=== PATIENT | male | born 1940 | race Caucasian/White ===

== ENCOUNTER → 2017-10-12 10:39 | Outpatient (CLI) | payer MEDICARE, SELFPAY ==
--- NOTE | 2017-10-12 | DI.RAD.S_ITS ---
PROCEDURE: XR PELVIS 1-2V INDICATIONS: pain in right hip when exercising TECHNIQUE: Single view(s) of the pelvis acquired. COMPARISON: None. FINDINGS: Bones: No fractures or dislocations. No suspicious bony lesions. Degenerative changes in both hips right greater than left as well as the lower lumbar spine. Soft tissues: Visualized bowel gas pattern is normal. Amorphous pelvic calcifications likely within the prostate. Surgical clip RLQ. IMPRESSION: 1. No acute fractures or dislocations. If there is clinical concern for a radiographically occult fracture then a noncontrast MRI would be recommended for further evaluation. There are bilateral hip degenerative changes right greater the left. 2. Amorphous pelvic calcifications likely within the prostate. Dictated by: Marito Begum M.D. on 10/12/2017 at 11:23 Approved by: Marito Begum M.D. on 10/12/2017 at 11:25
== END ==
PROVIDERS: Family Provider Internal Medicine; PCP Internal Medicine; Visit Provider Internal Medicine
DX: M16.0 Bilateral primary osteoarthritis of hip (principal); M25.551 Pain in right hip
CPT/HCPCS: 72170

== ENCOUNTER → 2018-08-07 16:05 | Outpatient (CLI) | payer MEDICARE, SELFPAY | PROVIDERS: Family Provider Internal Medicine; PCP Internal Medicine; Visit Provider Nurse Practitioner Family | DX: G47.33 Obstructive sleep apnea (adult) (pediatric) (principal) | CPT/HCPCS: 36415; 82728 ==

== ENCOUNTER → 2018-10-03 10:03 | Outpatient (CLI) | payer MEDICARE, SELFPAY ==
--- NOTE | 2018-10-03 | DI.US.S_ITS ---
PROCEDURE: US EXTREMITY NONVASC LOWER LT INDICATIONS: RED CUTANEOUS LUMP TECHNIQUE: Real-time scanning was performed of the left lower lateral leg, with image documentation. COMPARISON: None. FINDINGS: 3.7 x 1.0 x 5.0 cm complex subcutaneous soft tissue mass. Doppler assessment demonstrates no internal vascularity. IMPRESSION: Nonspecific mass corresponding to the palpable abnormality within the left lower leg. Differential would include both benign and malignant etiology. If indicated, sonographically directed fine needle aspiration could be performed. Dictated by: Bill SCOTT Interpreted: Eliel Akins MD on 10/03/2018 at 12:42 Approved by: Eliel Akins M.D. on 10/03/2018 at 15:34
== END ==
PROVIDERS: Family Provider Internal Medicine; PCP Internal Medicine; Visit Provider Internal Medicine
DX: R22.42 Localized swelling, mass and lump, left lower limb (principal)
CPT/HCPCS: 76882

== ENCOUNTER → 2018-10-28 11:04 | Outpatient (CLI) | payer MEDICARE, SELFPAY ==
--- NOTE | 2018-10-28 11:06 | DI.MRI.S_ITS ---
PROCEDURE: MR LOWER LEG LT WO/W CON INDICATIONS: Rapidly growing mass left lateral leg 5X5cm TECHNIQUE: Noncontrast coronal T1 spin echo and STIR, sagittal T1 spin echo with fat saturation and STIR, axial T1 spin echo and T2 fast spin echo with fat saturation. After the administration of contrast, axial/sagittal/coronal T1 spin echo with fat saturation through the left lower leg. COMPARISON: None. FINDINGS: Image quality: Excellent. Bones: The visualized bone marrow demonstrates normal signal on all sequences. The overlying cortex appears intact. No abnormal intraosseous enhancement. Soft tissues: 3.2 x 1.1 x 3.4 cm oval T2 hyperintense and T1 hypointense structure over lateral aspect of distal lower leg just lateral to the extensor digitorum longus muscle is seen. There is mild peripheral contrast enhancement. No underlying muscle or tendon involvement. The scanned muscles demonstrate normal overall bulk and internal signal. IMPRESSION: 1. 3.2 x 1.1 x 3.4 cm cystic structure is subcutaneous soft tissue along lateral aspect of distal lower leg initial mild peripheral contrast enhancement and most likely represent a ganglion cyst in this area. No other soft tissue mass or fluid collection is seen. No underlying muscle or tendon signal abnormality. 2. No marrow signal abnormality. No fracture or dislocation. Dictated by: Zeus Maurer M.D. on 10/28/2018 at 17:00 Approved by: Zeus Maurer M.D. on 10/28/2018 at 17:24
== END ==
PROVIDERS: Family Provider Internal Medicine; PCP Internal Medicine; Visit Provider Specialist
DX: R22.42 Localized swelling, mass and lump, left lower limb (principal)
CPT/HCPCS: 73720; A9579

== ENCOUNTER → 2018-12-10 07:11 | Outpatient (CLI) | payer MEDICARE, SELFPAY ==
[2018-12-10 08:06] LABS: Add Manual Diff / Slide Review NO; Basophils Absolute Auto 100 /uL (0-100); Basophils Percent Auto 1.2 % (0-2); Eosinophils Absolute Auto 300 /uL (0-450); Eosinophils Percent Auto 6.2 % (2-4); Hematocrit 43.5 % (41-53); Hemoglobin 14.6 g/dL (13.5-17.5); Lymphocytes Absolute Auto 1300 /uL (1100-4500); Lymphocytes Percent Auto 23.5 % (25-40); Mean Corpuscular HGB Conc 33.5 % (30-36); Mean Corpuscular Hemoglobin 32.1 PG (26-34); Mean Corpuscular Volume 95.6 fL (80-100); Monocytes Absolute Auto 700 /uL (0-900); Monocytes Percent Auto 13.1 % (3-14); Neutrophils Absolute Auto 3000 /uL (1500-7000); Platelet Count 242 X10^3/uL (150-400); Red Blood Cell Count 4.55 X10^6/uL (4.5-5.9); Red Cell Distribution Width 14.6 % (11.6-14.8); White Blood Cell Count 5.4 X10^3/uL (4.5-11.0)
[2018-12-10 08:20] LABS: Blood Urea Nitrogen 12 mg/dL (9-20); Calcium 10.1 mg/dL (8.4-10.2); Carbon Dioxide 29 mmol/L (22-32); Chloride 103 mmol/L (98-107); Cholesterol 184 mg/dL (140-199); Estimated Glomerular Filt Rate > 60.0 mL/min (>60); Glucose 92 mg/dL (80-110); HDL Cholesterol 72 mg/dL (40-60); HEMOLYSIS < 15 (0-50); LDL Cholesterol Calculated 88 mg/dL (<100); Sodium 140 mmol/L (137-145); Triglycerides 120 mg/dL (35-150)
[2018-12-10 08:50] LABS: TSH w/ Reflex to FT4 1.86 uIU/mL (0.47-4.68)
[2018-12-10 08:54] LABS: Erythrocyte Sedimentation Rate 7 MM/HR (0-15)
== END ==
PROVIDERS: PCP Internal Medicine; Visit Provider Internal Medicine
DX: R53.83 Other fatigue (principal); R06.09 Other forms of dyspnea; E78.00 Pure hypercholesterolemia, unspecified; M10.00 Idiopathic gout, unspecified site; E03.9 Hypothyroidism, unspecified; M35.3 Polymyalgia rheumatica
CPT/HCPCS: 36415; 80048; 80061; 84443; 84550; 85025; 85651

== ENCOUNTER → 2019-02-05 10:58 | Outpatient (CLI) | payer MEDICARE, SELFPAY ==
--- NOTE | 2019-02-05 | DI.RAD.S_ITS ---
PROCEDURE: XR KNEE RT 3V INDICATIONS: RT KNEE PAIN TECHNIQUE: 3 views of the knee were acquired. COMPARISON: [facility], KNEE 3V RIGHT, 12/04/2006, 6:52. [facility], KNEE 1-2 VIEWS LEFT, 11/01/2009, 10:16. FINDINGS: Bones: No fractures or dislocations. No suspicious bony lesions. Moderate medial patellofemoral compartment narrowing with felicia--articular osteophytes and patellar spur. Soft tissues: Mild joint effusion. No suspicious soft tissue calcifications. IMPRESSION: Medial and patellofemoral compartment narrowing consistent with osteoarthritis. Dictated by: Marilyn Aguirre M.D. on 02/05/2019 at 15:31 Approved by: Marilyn Aguirre M.D. on 02/05/2019 at 15:32
== END ==
PROVIDERS: PCP Internal Medicine; Visit Provider Internal Medicine
DX: M25.561 Pain in right knee (principal); M25.461 Effusion, right knee
CPT/HCPCS: 73562

== ENCOUNTER → 2019-03-04 19:23 | Outpatient (ROUT) | payer MEDICARE, SELFPAY | PROVIDERS: PCP Internal Medicine; Visit Provider Internal Medicine | DX: N39.0 Urinary tract infection, site not specified (principal) | CPT/HCPCS: 87077; 87086; 87186 ==

== ENCOUNTER → 2019-08-02 08:03 | Outpatient (CLI) | payer MEDICARE, SELFPAY ==
[2019-08-02 09:09] LABS: Alanine Aminotransferase 25 IU/L (<50); Albumin 4.1 g/dL (3.5-5.0); Albumin Globulin Ratio 1.4 (1.0-2.8); Alkaline Phosphatase 72 U/L (38-126); Aspartate Aminotransferase 50 IU/L (17-59); BUN Creatinine Ratio 16.2 (6-22); Bilirubin Total 0.5 mg/dL (0.2-1.3); Blood Urea Nitrogen 17 mg/dL (9-20); Calcium 9.9 mg/dL (8.4-10.2); Carbon Dioxide 27 mmol/L (22-32); Chloride 107 mmol/L (98-107); Cholesterol 158 mg/dL (140-199); Estimated Glomerular Filt Rate > 60.0 mL/min (>60); Globulin 2.9 g/dL (1.7-4.1); Glucose 106 mg/dL (80-110); HDL Cholesterol 59 mg/dL (40-60); HEMOLYSIS < 15 (0-50); LDL Cholesterol Calculated 85 mg/dL (<100); Potassium 4.6 mmol/L (3.4-5.1); Sodium 140 mmol/L (137-145); Triglycerides 68 mg/dL (35-150)
[2019-08-02 09:42] LABS: Thyroid Stimulating Hormone 2.32 uIU/mL (0.47-4.68)
== END ==
PROVIDERS: PCP Internal Medicine; Referring Provider Internal Medicine; Visit Provider Internal Medicine
DX: E78.00 Pure hypercholesterolemia, unspecified (principal); E03.9 Hypothyroidism, unspecified
CPT/HCPCS: 36415; 80053; 80061; 84443

== ENCOUNTER 2020-06-13 09:30 | Emergency (ER) | payer MEDICARE, SELFPAY ==
[2020-06-13 09:46] VITALS: BP 138/75; PULSE 90; RESP 16; TEMP 36.2; O2SAT 97; BMI 30.8
[2020-06-13 09:51] LABS: Bilirubin Urine UA NEGATIVE (NEGATIVE); Color Urine UA YELLOW; Glucose Urine UA NEGATIVE (Negative); Ketones Urine UA TRACE (NEGATIVE); Leukocyte Esterase Urine UA 3+ (NEGATIVE); Nitrite Urine UA POSITIVE (Negative); Occult Blood Urine UA 1+ (Negative); Protein Urine UA 1+ (Negative); Specific Gravity Urine UA 1.025 (1.000-1.035); Urobilinogen Urine UA 0.2 E.U./dL (0.2); pH Urine UA 5.5 (4.5-8.0)
[2020-06-13 09:52] LABS: Appearance Urine UA CLOUDY
[2020-06-13 09:54] VITALS: PULSE 77; O2SAT 95
[2020-06-13 10:00] VITALS: PULSE 74; O2SAT 95
--- NOTE | 2020-06-13 10:01 | ED.MALEGU ---
HPI - Male Genitourinary General Chief complaint: Urogenital-Male Stated complaint: UTI, cloudy urine, states PMR, achy muscles Time Seen by Provider: 06/13/20 09:42 Source: patient Mode of arrival: Ambulatory Limitations: no limitations History of Present Illness HPI Narrative: The patient is an 79-year-old male with history of polymyalgia rheumatica who presents with UTI. He says he has painful frequent urination he is unclear exactly how long it has been going on for. He denies any fevers chills abdominal pain nausea vomiting. He does feel like his polymyalgia rheumatica is acting up he feels like his hands are weak. He has not on prednisone but has been on prednisone in the past. MD Complaint: dysuria Related Data Home Medications Medication Instructions Recorded Confirmed allopurinol 300 mg tablet 300 mg PO DAILY 06/21/18 01/07/19 aspirin 81 mg tablet,delayed 81 mg PO DAILY 06/21/18 01/07/19 release levothyroxine 100 mcg capsule 100 mcg PO DAILY 06/21/18 01/07/19 simvastatin 40 mg tablet 40 mg PO BEDTIME 10/15/18 01/07/19 vitamins A,C,V-cgwo-veaapb 14,320 1 cap PO BID 10/15/18 01/07/19 unit-226 mg-200 unit capsule Previous Rx's Medication Instructions Recorded prednisone 20 mg PO DAILY #5 tab 06/13/20 sulfamethoxazole-trimethoprim 1 tab PO BID 5 Days #14 tab 06/13/20 [Bactrim DS] Allergies Allergy/AdvReac Type Severity Reaction Status Date / Time INGREDIENT: NKDA - NO KNOWN Allergy Unknown Uncoded 01/07/19 13:07 DRUG ALLERGIES Review of Systems Review of Systems ROS Unobtainable: All systems reviewed & are unremarkable except as noted in HPI and below Constitutional Constitutional: Denies chills, Denies fever(s), Denies frequent falls, Denies lethargy and Denies weakness Cardiovascular Cardiovascular: Denies chest pain, Denies irregular heart rhythm, Denies lightheadedness, Denies palpitations, Denies dyspnea, Denies dyspnea on exertion and Denies orthopnea Respiratory Respiratory: Denies cough, Denies dyspnea, Denies dyspnea on exertion and Denies wheezing Gastrointestinal Gastrointestinal: Denies abdominal pain, Denies change in bowel habits, Denies diarrhea, Denies nausea and Denies vomiting Genitourinary Genitourinary: Reports as per HPI Genitourinary: Reports as per HPI Musculoskeletal Musculoskeletal: Denies myalgias Integumentary/Breasts Skin/Breast: Denies pruritus, Denies erythema, Denies rash and Denies wounds Neurologic Neurologic: Denies frequent falls and Denies weakness Endocrine Endocrine: Denies palpitations Allergic/Immunologic Allergic/Immunologic: Denies wheezing Patient History Medical History (Updated 06/13/20 @ 11:09 by Venessa Melo DO) BPH w urinary obs/LUTS Gout Hyperlipidemia Hypothyroidism (acquired) Insomnia Kidney donor Nocturnal hypoxemia Obstructive sleep apnea of adult (~09/2014) Peripheral neuropathy PMR (polymyalgia rheumatica) Snoring Surgical History Donor of kidney for transplant (~1970) H/O total knee replacement (~10/2009) Hx of total knee replacement Family History Mother Cancer Father Cancer Brother Cancer Sister Cancer Social History marital status: details: lives in [place] number of children: 2 lives independently: Yes caregiver/support person: No housing: house education level: college Previous occupational history: Computer Engineering Technologist Smoking Status: Former smoker alcohol intake: current substance use type: does not use Smoking Status: Former smoker Exam Initial Vital Signs Initial Vital Signs: Vital Signs Temperature 97.1 F L 06/13/20 09:46 Pulse Rate 90 06/13/20 09:46 Respiratory Rate 16 06/13/20 09:46 Blood Pressure 138/75 06/13/20 09:46 Pulse Oximetry 97 06/13/20 09:46 GENERAL: Alert well-appearing 79-year-old male and in no acute distress. HEENT: Head atraumatic,EOMI, pupils reactive, face symmetric, moist mucous membranes CARDIOVASCULAR: Regular rate and rhythm without murmurs, rubs or gallops. RESPIRATORY: Breath sounds equal bilaterally, no wheezes rales or rhonchi. ABDOMEN: Soft, nontender. Normoactive bowel sounds all 4 quadrants. No guarding or rebound. EXTREMITIES: Normal range of motion, no clubbing or edema. Neurovascularly intact NEUROLOGICAL: Alert and oriented x4.Normal gait and speech. Cranial nerves II through XII grossly intact. SKIN: Warm, dry, no laceration, no petechiae, no rashes or lesions. Course Orders Ordered: ED Orders 06/13/20 09:41 Urinalysis and Microscopic Stat Urine Culture Stat 06/13/20 10:30 Complete Blood Count AUTO DIFF Stat Comprehensive Metabolic Panel Stat Procalcitonin Stat 06/13/20 10:50 Blood Culture Stat Vital Signs Vital signs: Vital Signs - 8 hr 06/13/20 09:46 06/13/20 09:54 06/13/20 10:00 Temperature 97.1 F L Pulse Rate 90 77 74 Respiratory Rate 16 Blood Pressure 138/75 Pulse Oximetry 97 95 95 06/13/20 10:30 06/13/20 11:23 Temperature Pulse Rate 77 78 Respiratory Rate 16 Blood Pressure 139/63 Pulse Oximetry 94 99 MDM - Male Genitourinary Lab Data Attestation: I reviewed the patient's lab results. Result diagrams: 06/13/20 10:30 06/13/20 10:30 Labs: Lab Results 06/13/20 06/13/20 06/13/20 Range/Units 09:41 10:30 10:30 WBC 11.1 H (4.5-11.0) X10^3/uL RBC 4.27 L (4.5-5.9) X10^6/uL Hgb 13.6 (13.5-17.5) g/dL Hct 40.9 L (41-53) % MCV 95.6 (80-100) fL MCH 31.9 (26-34) PG MCHC 33.3 (30-36) % RDW 14.6 (11.6-14.8) % Plt Count 211 (150-400) X10^3/uL Neut % (Auto) 93.4 H (50-75) % Lymph % (Auto) 1.9 L (25-40) % [place] % (Auto) 3.0 (3-14) % Eos % (Auto) 1.4 L (2-4) % Baso % (Auto) 0.3 (0-2) % Neut # (Auto) 30614 H (4455-6799) /uL Lymph # (Auto) 200 L (1118-5752) /uL [place] # (Auto) 300 (0-900) /uL Eos # (Auto) 200 (0-450) /uL Baso # (Auto) 0 (0-100) /uL Sodium 136 L (137-145) mmol/L Potassium 4.1 (3.4-5.1) mmol/L Chloride 104 (98-107) mmol/L Carbon Dioxide 25 (22-32) mmol/L BUN 23 H (9-20) mg/dL Creatinine 1.13 (0.66-1.25) mg/dL Estimated GFR > 60.0 (>60) mL/min BUN/Creatinine Ratio 20.4 (6-22) Glucose 117 H (80-110) mg/dL Calcium 9.5 (8.4-10.2) mg/dL Total Bilirubin 0.5 (0.2-1.3) mg/dL AST 37 (17-59) IU/L ALT 21 (<50) IU/L Alkaline Phosphatase 67 (38-126) U/L Total Protein 6.2 L (6.3-8.2) g/dL Albumin 3.8 (3.5-5.0) g/dL Globulin 2.4 (1.7-4.1) g/dL Albumin/Globulin Ratio 1.6 (1.0-2.8) Procalcitonin 0.17 (<0.5) ng/mL Urine Color Yellow Urine Appearance Cloudy Urine pH 5.5 (4.5-8.0) Ur Specific [place] 1.025 (1.000-1.035) Urine Protein 1+ H (Negative) Urine Glucose (UA) Negative (Negative) g/dL Urine Ketones Trace H (NEGATIVE) Urine Occult Blood 1+ H (Negative) Urine Nitrate Positive (Negative) Urine Bilirubin Negative (NEGATIVE) Urine Urobilinogen 0.2 (0.2) E.U./dL Ur Leukocyte Esterase 3+ H (NEGATIVE) Urine RBC 0-1/hpf (0-5/HPF) Urine WBC 30-100/hpf H (0-5/HPF) Ur Squamous Epith Cells 0-1 /hpf (0-5/HPF) Urine Bacteria Moderate (10-30) H (None) Ur Culture Indicated? Specimen cultured MDM Narrative Medical decision making narrative: The patient overall appears well his mild leukocytosis an obvious UTI. Will give him antibiotics and steroids however this polymyalgia rheumatica. I suspect that his PMR is slightly exacerbated due to his current infection. Will have him follow-up with his PCP. Discharge Plan Departure Patient Disposition: Home Clinical Impression: Urinary tract infection Qualifiers: Urinary tract infection type: site unspecified Hematuria presence: with hematuria Qualified Code(s): N39.0 - Urinary tract infection, site not specified Instructions: DI for Urinary Tract Infection (UTI) Activity Restrictions/Additional Instructions: *You have been diagnosed with UTI, bladder infection *What to do: Increase fluid intake. I hand should improve with treatment of the infection *Continue to take medications as directed Bactrim 1 tablet twice a day for 7 days Prednisone 20 mg once a day for 5 days *Follow up with your primary care provider in 2-3 days *Return to ER if you should have increased confusion, abdominal pain, weakness, vomiting or any new, worsening or concerning symptoms Prescriptions: New prednisone 20 mg tablet 20 mg PO DAILY Qty: 5 RF: 0 sulfamethoxazole-trimethoprim [Bactrim DS] 800-160 mg tablet 1 tab PO BID 5 Days Qty: 14 RF: 0 No Action simvastatin 40 mg tablet 40 mg PO BEDTIME RF: 0 PreserVision AREDS 14,320-226-200 [id number]-fw-[id number] capsule 1 cap PO BID RF: 0 allopurinol 300 mg tablet 300 mg PO DAILY RF: 0 aspirin 81 mg tablet,delayed release (DR/EC) 81 mg PO DAILY RF: 0 levothyroxine 100 mcg capsule 100 mcg PO DAILY RF: 0 Referrals: Gurwinder Thomas MD [Primary Care Provider] -
[2020-06-13 10:05] LABS: Bacteria Urine Moderate (10-30); Culture Indicated Urine Specimen Cultured; RBC Urine 0-1/HPF (0-5/HPF); Squamous Epithelial Cell Urine 0-1 /HPF (0-5/HPF); WBC Urine 30-100/HPF (0-5/HPF)
[2020-06-13 10:30] VITALS: PULSE 77; O2SAT 94
[2020-06-13 10:41] LABS: Add Manual Diff / Slide Review NO; Basophils Absolute Auto 0 /uL (0-100); Basophils Percent Auto 0.3 % (0-2); Eosinophils Absolute Auto 200 /uL (0-450); Eosinophils Percent Auto 1.4 % (2-4); Hematocrit 40.9 % (41-53); Hemoglobin 13.6 g/dL (13.5-17.5); Lymphocytes Absolute Auto 200 /uL (1100-4500); Lymphocytes Percent Auto 1.9 % (25-40); Mean Corpuscular HGB Conc 33.3 % (30-36); Mean Corpuscular Hemoglobin 31.9 PG (26-34); Mean Corpuscular Volume 95.6 fL (80-100); Monocytes Absolute Auto 300 /uL (0-900); Neutrophils Absolute Auto 10300 /uL (1500-7000); Neutrophils Percent Auto 93.4 % (50-75); Platelet Count 211 X10^3/uL (150-400); Red Blood Cell Count 4.27 X10^6/uL (4.5-5.9); Red Cell Distribution Width 14.6 % (11.6-14.8); White Blood Cell Count 11.1 X10^3/uL (4.5-11.0)
[2020-06-13 10:52] LABS: Alanine Aminotransferase 21 IU/L (<50); Albumin 3.8 g/dL (3.5-5.0); Albumin Globulin Ratio 1.6 (1.0-2.8); Alkaline Phosphatase 67 U/L (38-126); Aspartate Aminotransferase 37 IU/L (17-59); BUN Creatinine Ratio 20.4 (6-22); Bilirubin Total 0.5 mg/dL (0.2-1.3); Blood Urea Nitrogen 23 mg/dL (9-20); Calcium 9.5 mg/dL (8.4-10.2); Carbon Dioxide 25 mmol/L (22-32); Chloride 104 mmol/L (98-107); Estimated Glomerular Filt Rate > 60.0 mL/min (>60); Globulin 2.4 g/dL (1.7-4.1); Glucose 117 mg/dL (80-110); HEMOLYSIS < 15 (0-50); Potassium 4.1 mmol/L (3.4-5.1); Sodium 136 mmol/L (137-145); Total Protein 6.2 g/dL (6.3-8.2)
[2020-06-13 11:08] LABS: Procalcitonin 0.17 ng/mL (<0.5)
[2020-06-13 11:23] VITALS: BP 139/63; PULSE 78; RESP 16; O2SAT 99
--- NOTE | 2020-06-13 11:25 | PC.NURSE ---
pt states UTI.
== END 2020-06-13 11:26 | disposition home or self-care (01) ==
PROVIDERS: Emergency Provider Emergency Medicine; PCP Internal Medicine
DX: N39.0 Urinary tract infection, site not specified (principal)
CPT/HCPCS: 36415; 80053; 81001; 84145; 85025; 87040; 87077; 87086; 87186; 99281; 99283

== ENCOUNTER → 2020-07-21 10:32 | Outpatient (CLI) | payer MEDICARE, SELFPAY ==
[2020-07-21 11:22] LABS: Add Manual Diff / Slide Review NO; Basophils Absolute Auto 0 /uL (0-100); Basophils Percent Auto 0.5 % (0-2); Eosinophils Absolute Auto 100 /uL (0-450); Eosinophils Percent Auto 1.9 % (2-4); Hematocrit 42.8 % (41-53); Hemoglobin 14.1 g/dL (13.5-17.5); Lymphocytes Absolute Auto 1000 /uL (1100-4500); Lymphocytes Percent Auto 15.2 % (25-40); Mean Corpuscular Hemoglobin 31.9 PG (26-34); Mean Corpuscular Volume 96.8 fL (80-100); Monocytes Absolute Auto 700 /uL (0-900); Monocytes Percent Auto 10.4 % (3-14); Neutrophils Absolute Auto 4800 /uL (1500-7000); Platelet Count 198 X10^3/uL (150-400); Red Blood Cell Count 4.42 X10^6/uL (4.5-5.9); Red Cell Distribution Width 15.3 % (11.6-14.8); White Blood Cell Count 6.7 X10^3/uL (4.5-11.0)
[2020-07-21 11:45] LABS: Erythrocyte Sedimentation Rate 4 MM/HR (0-15)
[2020-07-21 13:36] LABS: TSH w/ Reflex to FT4 2.01 uIU/mL (0.47-4.68)
== END ==
PROVIDERS: PCP Internal Medicine; Referring Provider Internal Medicine; Visit Provider Internal Medicine
DX: E03.9 Hypothyroidism, unspecified (principal); M35.3 Polymyalgia rheumatica
CPT/HCPCS: 36415; 84443; 85025; 85651

== ENCOUNTER 2022-07-14 11:11 | Emergency (ER) | payer OTHER, SELFPAY ==
[2022-07-14 11:25] VITALS: BP 141/62; PULSE 63; RESP 14; TEMP 36.6; O2SAT 97; BMI 28.2
--- NOTE | 2022-07-14 11:28 | DI.CT.S_ITS ---
PROCEDURE: CT CERVICAL SPINE WO CON INDICATIONS: fall with neck pain TECHNIQUE: Noncontrast 3 mm thick sections acquired from the skull base to the T4 level. Sagittal and coronal reformats were then constructed. For radiation dose reduction, the following was used: automated exposure control, adjustment of mA and/or kV according to patient size. COMPARISON: None. FINDINGS: Image quality: Excellent. Bones: No fractures or dislocations. Visualized superior ribs are intact. Multilevel degenerative changes are present. Soft tissues: Prevertebral soft tissues are normal in thickness. No paravertebral hematomas. No apical pneumothoraces. IMPRESSION: Multilevel degenerative changes without visualized fracture. Dictated by: Marilyn Aguirre M.D. on 07/14/2022 at 12:38 Approved by: Marilyn Aguirre M.D. on 07/14/2022 at 12:40
--- NOTE | 2022-07-14 11:28 | DI.CT.S_ITS ---
PROCEDURE: CT HEAD/BRAIN WO CON INDICATIONS: fall with neck pain TECHNIQUE: Noncontrast 4.5 mm thick angled axial sections acquired from the foramen magnum to the vertex, with coronal and sagittal reformats. For radiation dose reduction, the following was used: automated exposure control, adjustment of mA and/or kV according to patient size. COMPARISON: [facility], CT, CT CERVICAL SPINE WO CON, 07/14/2022, 11:59. FINDINGS: Image quality: Excellent. CSF spaces: Basal cisterns are patent. No extra-axial fluid collections. The ventricles are symmetric in size and shape. Brain: No intracranial bleeds or masses. There is cerebral volume loss for age, with resultant ventricular and sulcal prominence. There are periventricular and deep white matter chronic small vessel ischemic changes. There is intracranial internal carotid artery atherosclerosis. Skull and face: Calvarium and visualized facial bones appear intact, without suspicious lesions. Sinuses: Visualized sinuses and mastoids are clear. IMPRESSION: 1. No acute intracranial process. 2. Moderate atrophy and chronic microvascular ischemic changes. Dictated by: Marilyn Aguirre M.D. on 07/14/2022 at 12:41 Approved by: Marilyn Aguirre M.D. on 07/14/2022 at 12:42
--- NOTE | 2022-07-14 12:53 | ED_ITS ---
HPI - Head Injury General Chief complaint: Head Injury Stated complaint: sent by [facility] fell hit head T-1 neck hurts Time Seen by Provider: 07/14/22 12:48 Source: patient Mode of arrival: Ambulatory History of Present Illness HPI Narrative: Patient here, sent from walk-in clinic for injury to his neck and scalp. Patient was working on a walkway yesterday around [facility]. He lost his footing and fell to the left side. Denies any pain below his head. He does have upper neck pain. No loss of consciousness. No nausea or vomiting no vision changes. No numbness tingling or weakness. Not repeating statements or questions. No headache at this time. Tetanus is up-to-date. Has abrasion to the top left scalp. Denies any facial injury. Again, denies any back pain upper extremity pain chest pain abdominal pain pelvis pain hip knees or ankles or wrists hands shoulders Related Data Home Medications Medication Instructions Recorded Confirmed allopurinol 300 mg tablet 300 mg PO DAILY 06/21/18 01/07/19 aspirin 81 mg tablet,delayed 81 mg PO DAILY 06/21/18 01/07/19 release levothyroxine 100 mcg capsule 100 mcg PO DAILY 06/21/18 01/07/19 simvastatin 40 mg tablet 40 mg PO BEDTIME 10/15/18 01/07/19 vitamins A,C,O-pshg-ginijb 4,296 1 cap PO BID 10/15/18 01/07/19 mcg-226 mg-90 mg capsule (PreserVision AREDS) Previous Rx's Medication Instructions Recorded prednisone 20 mg tablet 20 mg PO DAILY #5 tabs 06/13/20 Allergies Allergy/AdvReac Type Severity Reaction Status Date / Time No Known Drug Allergies Allergy Verified 07/14/22 11:35 Review of Systems Review of Systems Narrative: GENERAL: negative chills, fatigue, malaise, fever, sweats. HEENT: negative sinus pain, ear pain, sore throat RESPIRATORY: negative dyspnea, cough CARDIOVASCULAR: negative chest pain, palpitations GASTROINTESTINAL: negative nausea, vomiting, abdominal pain : negative dysuria, frequency, hematuria MUSCULOSKELETAL: negative muscle or bony pain SKIN: negative rash, skin lesions, positive skin injury NEUROLOGIC: negative weakness, numbness ROS Unobtainable: All systems reviewed & are unremarkable except as noted in HPI and below Patient History Medical History (Updated 07/29/22 @ 00:01 by ) BPH w urinary obs/LUTS Gout Hyperlipidemia Hypothyroidism (acquired) Insomnia Kidney donor Nocturnal hypoxemia Obstructive sleep apnea of adult (~09/2014) Peripheral neuropathy PMR (polymyalgia rheumatica) Snoring Surgical History Donor of kidney for transplant (~1970) H/O total knee replacement (~10/2009) Hx of total knee replacement Family History Mother Cancer Father Cancer Brother Cancer Sister Cancer Social History marital status: details: lives in [place] number of children: 2 lives independently: Yes caregiver/support person: No housing: house education level: college Previous occupational history: Tavern Keeper Smoking Status: Former smoker alcohol intake: current substance use type: does not use Smoking Status: Former smoker alcohol intake frequency: 0-2 drinks per day Substance Use Type: does not use Exam Narrative Exam Narrative: GENERAL: in no distress, not toxic not dyspneic HEAD: Normocephalic. There is abrasions to the top left scalp. No crepitus or step-off of this gallop or skull. Area is nontender. No bleeding or oozing. EYES: Pupils equal round ENT: Mucous membranes moist. NECK: Trachea midline. No midline tenderness or step-off of the cervicothoracic or lumbar spine. No skin injury seen on the back. Short lifted up. CARDIOVASCULAR: Regular rate and rhythm without murmurs RESPIRATORY: Clear to auscultation. Breath sounds equal bilaterally. No wheezes, rales, or rhonchi. GASTROINTESTINAL: Abdomen soft, non-tender EXTREMITIES: No gross deformities. Nontender bilateral shoulders elbows wrists pelvis hips knees and ankles BACK: No flank tenderness. NEURO: AOx4. SKIN: Warm and dry PSYCH: Not anxious, is cooperative Initial Vital Signs Initial Vital Signs: Vital Signs Temperature 97.9 F 07/14/22 11:25 Pulse Rate 63 07/14/22 11:25 Respiratory Rate 14 07/14/22 11:25 Blood Pressure 141/62 H 07/14/22 11:25 Pulse Oximetry 97 07/14/22 11:25 Oxygen Delivery Method Room Air 07/14/22 11:25 Course Orders Ordered: Discontinued Medications Bacitracin (Bacitracin Oint 0.9 Gm Pckt) 1 applic TOP NOW ONE Stop: 07/14/22 12:55 Vital Signs Vital signs: Vital Signs - 8 hr 07/14/22 11:25 Temperature 97.9 F Pulse Rate 63 Respiratory Rate 14 Blood Pressure 141/62 H Pulse Oximetry 97 Oxygen Delivery Method Room Air MDM - Head Injury Imaging Data CT scan - head: Radiologist's Impression: PROCEDURE:? CT HEAD/BRAIN WO CON ? INDICATIONS:? fall with neck pain ? TECHNIQUE:? Noncontrast 4.5 mm thick angled axial sections acquired from the foramen magnum to the vertex, with coronal and sagittal reformats.? For radiation dose reduction, the following was used:? automated exposure control, adjustment of mA and/or kV according to patient size.? ? COMPARISON:? [facility], CT, CT CERVICAL SPINE WO CON, 07/14/2022, 11:59. ? FINDINGS:? Image quality:? Excellent.? ? CSF spaces:? Basal cisterns are patent.? No extra-axial fluid collections.? The ventricles are symmetric in size and shape.? ? Brain:? No intracranial bleeds or masses.? There is cerebral volume loss for age, with resultant ventricular and sulcal prominence.? There are periventricular and deep white matter chronic small vessel ischemic changes.? There is intracranial internal carotid artery atherosclerosis.? ? Skull and face:? Calvarium and visualized facial bones appear intact, without suspicious lesions.? ? Sinuses:? Visualized sinuses and mastoids are clear.? ? IMPRESSION:? ? 1. No acute intracranial process. ? 2. Moderate atrophy and chronic microvascular ischemic changes. ? ? ? Dictated by: Marilyn Aguirre M.D. on 07/14/2022 at 12:41 ? ? Approved by: Marilyn Aguirre M.D. on 07/14/2022 at 12:42 ? CT - cervical spine: Radiologist's Impression: PROCEDURE:? CT CERVICAL SPINE WO CON ? INDICATIONS:? fall with neck pain ? TECHNIQUE:? Noncontrast 3 mm thick sections acquired from the skull base to the T4 level.? Sagittal and coronal reformats were then constructed.? For radiation dose reduction, the following was used:? automated exposure control, adjustment of mA and/or kV according to patient size.? ? COMPARISON:? None. ? FINDINGS:? Image quality:? Excellent.? ? Bones:? No fractures or dislocations.? Visualized superior ribs are intact.? Multilevel degenerative changes are present. ? Soft tissues:? Prevertebral soft tissues are normal in thickness.? No paravertebral hematomas.? No apical pneumothoraces.? ? ? IMPRESSION:? Multilevel degenerative changes without visualized fracture. ? Dictated by: Marilyn Aguirre M.D. on 07/14/2022 at 12:38 ? ? Approved by: Marilyn Aguirre M.D. on 07/14/2022 at 12:40 ? MDM Narrative Medical decision making narrative: After history and exam CT head CT cervical spine bacitracin ordered MDM CC: Head injury Complicating co-morbidities: Patient not on blood thinners Data collected from: Patient Medical records reviewed: No recent visit for this complaint Differential considered: Includes but not limited to closed head injury intracranial bleed skull fracture abrasion concussion cervical strain sprain fracture Exam documented above, pertinent findings include: Abrasions to the scalp Imaging studies independently reviewed: CT head and cervical spine no acute process Treatments: Bacitracin Re-evaluations: 1:00 p.m.. Reviewed results with patient. They are reassuring. Exam is reassuring as well. Return precautions reviewed with him. He desires discharge home. Discussion: Appropriate for discharge home. Exam is reassuring as well as CT scan imaging. No blood work indicated. Patient had a mechanical fall. This occurred yesterday. No concussive syndrome. Return precautions reviewed with him. Wound care instructions provided. Not toxic at discharge. He desires discharge home Diagnosis: Scalp contusion cervical strain Discharge Plan Departure Patient Disposition: Home Clinical Impression: Abrasion of scalp, Cervical muscle strain Instructions: DI for Cervical Muscle Strain, DI for Closed Head Injury, Closed Head Injury, DI for Abrasion Activity Restrictions/Additional Instructions: See family doctor next week for re-evaluation. Please clean your scalp wound daily with warm soap and water and apply thin layer topical antibiotic. Return if worse if any questions or concerns. May continue Tylenol for pain. Prescriptions: No Action simvastatin 40 mg tablet 40 mg PO BEDTIME PreserVision AREDS 14,320-226-200 ftjv-kg-jabq capsule 1 cap PO BID prednisone 20 mg tablet 20 mg PO DAILY Qty: 5 0RF allopurinol 300 mg tablet 300 mg PO DAILY aspirin 81 mg tablet,delayed release (DR/EC) 81 mg PO DAILY levothyroxine 100 mcg capsule 100 mcg PO DAILY Referrals: Virginia Duarte PA-C [Primary Care Provider] - Stand Alone Forms: Patient Portal/API
[2022-07-14 13:02] VITALS: BP 124/63; PULSE 78; RESP 14; O2SAT 99
== END 2022-07-14 13:07 | disposition home or self-care (01) ==
PROVIDERS: Emergency Provider Emergency Medicine; PCP Physician Assistant
DX: S16.1XXA Strain of muscle, fascia and tendon at neck level, initial encounter (principal); S00.01XA Abrasion of scalp, initial encounter; W18.30XA Fall on same level, unspecified, initial encounter
CPT/HCPCS: 70450; 72125; 99284

== ENCOUNTER 2022-09-11 07:54 | Day surgery (SDC) | payer OTHER, SELFPAY ==
[2022-09-11] VITALS (7 sets, daily range): BP systolic 79–136; BP diastolic 53–84; PULSE 53–59; RESP 12–18; TEMP 36.2–36.5; O2SAT 94–99; BMI 28.6
--- NOTE | 2022-09-11 | PATH_ITS ---
[facility] Accession Number: [id number] No. of containers..02 Tissue . 01 Material submitted: . PART A: colon - COLON POLYPS X6 PART B: colon - HEPATIC FLEXURE X3 . 01 Diagnosis: A. Colon, Polypectomy x6: Tubular adenoma, four fragments. . B. Hepatic Flexure, Polypectomy x3: Multiple fragments of tubular adenoma. MRV 09/15/2022 1513 Local . 01 Electronically signed: . Ximena Cardona MD, Pathologist NPI- [id number] . 01 Gross description: . A. Received in formalin labeled with the patient's name, and colon polyps consists of multiple ernandez soft tissue fragments aggregating to 1.1 x 0.4 x 0.1 cm. Filtered and submitted in A1. B. Received in formalin labeled with the patient's name, and hepatic flexure consists of multiple ernandez soft tissue fragments aggregating to 1.7 x 1.3 x 0.2 cm. Filtered and submitted in B1. ([id number]) /MRV 09/13/2022 1832 Local . 01 Pathologist provided ICD-10: D12.6, D12.3 . 01 CPT . 093627, 594532 Specimen Comment: A courtesy copy of this report has been sent to [phone] Performed at: 01 [facility] [address] [place] [address] [id number] MD Pietro Velasquez MD Phone: [phone]
--- NOTE | 2022-09-11 08:33 | PM.HP.1 ---
History of Present Illness History of Present Illness Date Patient Seen: 09/11/22 Time Patient Seen: 08:33 Chief complaint: Colonoscopy Narrative: Here for colonoscopy for colon cancer screening. I reviewed the recent office note by Jarek Villa. No significant changes. 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) Hx of total knee replacement Family History Mother Cancer Father Cancer Brother Cancer Sister Cancer Social History marital status: details: lives in [place] number of children: 2 household members: none lives independently: Yes caregiver/support person: No housing: house education level: college Previous occupational history: Medical Staff Manager Smoking Status: Never smoker alcohol intake: current substance use type: does not use Meds Home Medications and Allergies Home Medications Medication Instructions Recorded Confirmed Type allopurinol 300 mg tablet 300 mg PO DAILY 06/21/18 09/11/22 History aspirin 81 mg tablet,delayed 81 mg PO DAILY 06/21/18 09/11/22 History release levothyroxine 100 mcg capsule 100 mcg PO DAILY 06/21/18 09/11/22 History simvastatin 40 mg tablet 40 mg PO BEDTIME 10/15/18 09/11/22 History vitamins A,C,X-muvz-wqfxvm 4,296 1 cap PO BID 10/15/18 09/11/22 History mcg-226 mg-90 mg capsule (PreserVision AREDS) Allergies Allergy/AdvReac Type Severity Reaction Status Date / Time No Known Drug Allergies Allergy Verified 09/11/22 08:07 Exam Const General: cooperative HENMT Head: normal to inspection Eyes General: appearance normal, both eyes and all related structures Neck Neck: normal visual inspection Chest Chest: normal inspection of the chest Resp Effort & Inspection: normal respiratory effort Cardio Rate: regular rate GI Inspection: normal to inspection Skin General: no rashes or lesions noted Neuro General: patient alert and patient awake Extrem General: normal to inspection and no pedal edema Psych Appearance: grossly normal Assessment & Plan Assessment & Plan narrative: 81-year-old male here for colon cancer screening. Colonoscopy is planned for today.
[2022-09-11] MEDS: LACTATED RINGERS 1,000 ML 42 ML IV (08:34)
--- NOTE | 2022-09-11 09:57 | PM.OP.COLON ---
Operative Date/Time/Diagnoses Date of procedure: 09/11/22 Time of procedure: 09:57 Pre-op diagnosis: Colon cancer screening Post-op diagnosis: same Procedure & Clinicians Study performed: Colonoscopy with hot and cold snare polypectomy. Same procedure as scheduled: No Indications: Colon cancer screening Surgeon: Tr Peralta Procedure Notes SCOAP/Timeout: Done Procedure in detail: After the risks and benefits were explained, written and verbal informed consent was obtained. The patient was brought into the procedure room and placed into the left lateral decubitus position. Please see anesthesia notes for sedation details. Digital rectal examination was accomplished. The scope was introduced into the patient and advanced under direct visualization to the cecum as identified by the appendiceal orifice and ileocecal valve. The scope was slowly withdrawn to carefully examine the mucosa for any defects or lesions. Comprehensive imaging was accomplished throughout the rectum including the dentate line. The colon was decompressed, the scope was then removed from the patient who tolerated the procedure well. Adult colonoscope Bowel prep fair; with copious irrigation was rendered adequate. Procedure time was prolonged secondary to a lengthy redundant colon. Navigation was therefore challenging to arrive and cecum. Additionally there were numerous polyps 2 removed today including a very challenging grouping at the hepatic flexure. Scope withdrawal time: 27 minutes Sedation minutes: 48 Complications: none Impression: The colon was extremely redundant. Navigation was therefore very challenging. Procedure time was thus prolonged. There were [address] of a combination of hot and cold snare in the descending transverse ascending and cecum. These ranged in size from 5 to 7 mm. At the hepatic flexure there were 3 polyps sessile in nature ranging in size from 8-14 mm. The largest of these polyps was the most challenging to gain position on and thus prolonged the procedure. All of these polyps were removed with hot snare polypectomy. Endoscopic diagnosis 1. Multiple colon polyps 2. Prolonged procedure secondary to colon redundancy Post-procedure Plan for aftercare: 1. Await histopathology 2. Repeat colonoscopy 1 year. Disposition: PACU
== END 2022-09-11 10:40 | disposition home or self-care (01) ==
PROVIDERS: PCP Physician Assistant; Referring Provider Internal Medicine Gastroenterology; Visit Provider Internal Medicine Gastroenterology
PROC: 0DJD8ZZ Inspection of Lower Intestinal Tract, Via Natural or Artificial Opening Endoscopic (ICD-10-PCS; CPT 45378; principal; 2022-09-11 09:00)
DX: Z12.11 Encounter for screening for malignant neoplasm of colon (principal); D12.6 Benign neoplasm of colon, unspecified; D12.3 Benign neoplasm of transverse colon
CPT/HCPCS: 45385; J2704

== ENCOUNTER 2022-10-19 14:53 | Emergency (ER) | payer OTHER, SELFPAY ==
[2022-10-19 15:07] VITALS: BP 119/59; PULSE 65; RESP 18; TEMP 36.3; O2SAT 97; BMI 28.8
[2022-10-19 16:04] LABS: Bacteria Urine Moderate (10-30); Culture Indicated Urine Specimen Cultured; RBC Urine >100/HPF (0-5/HPF); Squamous Epithelial Cell Urine 1-5 /HPF (0-5/HPF); WBC Urine >100/HPF (0-5/HPF)
[2022-10-19 16:25] VITALS: BP 130/62; PULSE 65; RESP 18; TEMP 36.6; O2SAT 96
--- NOTE | 2022-10-19 16:26 | ED.MALEGU ---
HPI - Male Genitourinary <JOLEEN Miller - Last Filed: 10/19/22 16:35> General Chief complaint: Urogenital-Male Stated complaint: Blood in urine Time Seen by Provider: 10/19/22 16:00 Source: patient Mode of arrival: Ambulatory History of Present Illness HPI Narrative: This is an 81-year-old male who presents to the emergency department complaining of hematuria with history of this once in the past. Endorses a history of BPH, denies difficulty urinating, states that he takes 2 tabs of tamsulosin nightly. He does not a urologist currently, he is not anticoagulated, states that he takes a baby aspirin daily. He denies nausea, vomiting, fever chills, dysuria or flank pain. Denies history of kidney stones. Denies recent stool changes, denies painful bowel movements or a painful prostate to his knowledge. Related Data Home Medications Medication Instructions Recorded Confirmed allopurinol 300 mg tablet 300 mg PO DAILY 06/21/18 09/11/22 aspirin 81 mg tablet,delayed 81 mg PO DAILY 06/21/18 09/11/22 release levothyroxine 100 mcg capsule 100 mcg PO DAILY 06/21/18 09/11/22 simvastatin 40 mg tablet 40 mg PO BEDTIME 10/15/18 09/11/22 vitamins A,C,B-isui-okwfwi 4,296 1 cap PO BID 10/15/18 09/11/22 mcg-226 mg-90 mg capsule (PreserVision AREDS) Previous Rx's Medication Instructions Recorded cefuroxime axetil 500 mg tablet 500 mg PO BID 8 days #16 tabs 10/19/22 Allergies Allergy/AdvReac Type Severity Reaction Status Date / Time No Known Drug Allergies Allergy Verified 10/19/22 15:11 Review of Systems <JOLEEN Miller - Last Filed: 10/19/22 16:35> Review of Systems ROS Unobtainable: All systems reviewed & are unremarkable except as noted in HPI and below Patient History <JOLEEN Miller - Last Filed: 10/19/22 16:35> Medical History BPH w urinary obs/LUTS Gout Hyperlipidemia Hypothyroidism (acquired) Insomnia Kidney donor Nocturnal hypoxemia Obstructive sleep apnea of adult (~09/2014) Peripheral neuropathy PMR (polymyalgia rheumatica) Snoring Surgical History Donor of kidney for transplant (~1970) H/O total knee replacement (~10/2009) Hx of total knee replacement Family History Mother Cancer Father Cancer Brother Cancer Sister Cancer Social History marital status: details: lives in [place] number of children: 2 household members: none lives independently: Yes caregiver/support person: No housing: house education level: college Previous occupational history: [employer] Smoking Status: Never smoker alcohol intake: current substance use type: does not use Smoking Status: Never smoker alcohol intake frequency: 0-2 drinks per day Substance Use Type: does not use Exam <JOLEEN Miller - Last Filed: 10/19/22 16:35> Narrative Exam Narrative: Reviewed vitals signs and nursing notes. General: Pleasant, sitting upright, in no acute distress, well groomed, afebrile GI: abdomen nondistended, without CVA tenderness bilaterally. Denies abdominal pain or tenderness MSK: moves all extremities, no weakness, normal tone, ambulatory without deficit Skin: brisk capillary refill, without rash or wound Neuro: clear speech and normal cognition, A&O x3, GCS 15, no focal motor or sensation deficits Initial Vital Signs Initial Vital Signs: Vital Signs Temperature 97.3 F L 10/19/22 15:07 Pulse Rate 65 10/19/22 15:07 Respiratory Rate 18 10/19/22 15:07 Blood Pressure 119/59 L 10/19/22 15:07 Pulse Oximetry 97 10/19/22 15:07 Oxygen Delivery Method Room Air 10/19/22 15:07 <Shaggy Underwood MD - Last Filed: 10/24/22 12:52> Initial Vital Signs Initial Vital Signs: Vital Signs Temperature 97.3 F L 10/19/22 15:07 Pulse Rate 65 10/19/22 15:07 Respiratory Rate 18 10/19/22 15:07 Blood Pressure 119/59 L 10/19/22 15:07 Pulse Oximetry 97 10/19/22 15:07 Oxygen Delivery Method Room Air 10/19/22 15:07 Course <JOLEEN Miller - Last Filed: 10/19/22 16:35> Orders Ordered: ED Orders 10/19/22 15:15 Urine Culture Stat Urine Microscopic Stat Vital Signs Vital signs: Vital Signs - 8 hr 10/19/22 15:07 Temperature 97.3 F L Pulse Rate 65 Respiratory Rate 18 Blood Pressure 119/59 L Pulse Oximetry 97 Oxygen Delivery Method Room Air <Shaggy Underwood MD - Last Filed: 10/24/22 12:52> Orders Ordered: ED Orders 10/19/22 15:15 Urine Culture Stat Urine Microscopic Stat Vital Signs Vital signs: Vital Signs - 8 hr 10/19/22 15:07 Temperature 97.3 F L Pulse Rate 65 Respiratory Rate 18 Blood Pressure 119/59 L Pulse Oximetry 97 Oxygen Delivery Method Room Air MDM - Male Genitourinary <JOLEEN Miller - Last Filed: 10/19/22 16:35> Lab Data Labs: Lab Results 10/19/22 Range/Units 15:15 Urine RBC >100/hpf H (0-5/HPF) Urine WBC >100/hpf H (0-5/HPF) Ur Squamous Epith Cells 1-5 /hpf (0-5/HPF) Urine Bacteria Moderate (10-30) H (None) Ur Culture Indicated? Specimen cultured Urine Dip Bedside Urine Glucose Negative Bedside Urine Bilirubin - Negative Bedside Urine Ketone - Negative Urine Specific [place] 1.025 Bedside Urine Occult Blood +++ Bedside Urine pH 6.0 Bedside Urine Protein + 30 Bedside Urine Urobilinogen +/- 1mg Bedside Urine Nitrite - Negative Bedside Urine Leukocytes +++ 500 Esterase MDM Narrative Medical decision making narrative: Chief Complaint: hematuria Multiple etiologies for patient's complaint considered including, but not limited to: trauma, nephrolithiasis, lesion, malignancy- bladder, prostatitis, BPH, urinary calculi, pyelonephritis, perineal infection I have independently reviewed the patient's vital signs and nursing notes as well as prior records if available. Course of Care: I saw this patient in the waiting room, patient does not have pain currently, painless hematuria, history of UTIs in the past, BPH, denies painful bowel movement, blood in stool, flank pain, fever chills or abdominal pain otherwise. He is not anticoagulated, UA shows RBCs, WBCs and moderate bacteria, urine culture pending, prior urine culture show E coli that is pansensitive. He was prescribed cefuroxime b.i.d. x8 days. He does not have a urologist currently, states that he may need to follow-up with one for a cystoscopy as needed. Patient was given contact information for Dr. Khan to schedule follow-up as needed and encouraged to do so if he has recurrence from this . Social considerations that may affect disposition: none Questions are addressed and there is agreement with the plan and for follow-up. I consulted with the ED attending physician Dr. Underwood as needed for higher level of care considerations and they were available for discussion and recommendations regarding plan of care and diagnostic testing. Patient is appropriate for outpatient management. <Shaggy Underwood MD - Last Filed: 10/24/22 12:52> Lab Data Labs: Lab Results 10/19/22 Range/Units 15:15 Urine RBC >100/hpf H (0-5/HPF) Urine WBC >100/hpf H (0-5/HPF) Ur Squamous Epith Cells 1-5 /hpf (0-5/HPF) Urine Bacteria Moderate (10-30) H (None) Ur Culture Indicated? Specimen cultured Urine Dip Bedside Urine Glucose Negative Bedside Urine Bilirubin - Negative Bedside Urine Ketone - Negative Urine Specific [place] 1.025 Bedside Urine Occult Blood +++ Bedside Urine pH 6.0 Bedside Urine Protein + 30 Bedside Urine Urobilinogen +/- 1mg Bedside Urine Nitrite - Negative Bedside Urine Leukocytes +++ 500 Esterase Discharge Plan Departure Patient Disposition: Home Clinical Impression: Urinary tract infection Qualifiers: Urinary tract infection type: site unspecified Hematuria presence: with hematuria Qualified Code(s): N39.0 - Urinary tract infection, site not specified Hematuria Qualifiers: Hematuria type: gross Qualified Code(s): R31.0 - Gross hematuria Instructions: Blood in Urine, DI for Urinary Tract Infection (UTI) Activity Restrictions/Additional Instructions: *You have been diagnosed with urinary tract infection. Please finish these antibiotics, stay on your Flomax, stay hydrated, try to empty her bladder frequently, I hope you feel better soon. Please come back if you develop a fever, vomiting, or worsening symptoms. I have given you 8 days of antibiotics, that should help get rid of this, for pain, Tylenol and ibuprofen if you can tolerate it. We will call you if the urine culture suggest that we need to change your medication. Please call the office of Dr. Khan, local urologist and schedule an appointment for follow-up from the emergency department at the soonest available for urinary tract infection and hematuria. I have forwarded this note to him, he will associate the chart with your appointment. *What to do: *Please continue to take your regular medications as directed. [x ] New medication prescriptions sent to your pharmacy: [[facility]] [ ] New medication written as a paper prescription [ ] No new medications given *Please call and schedule follow up with your primary care provider in 2-3 days, at least for an update. Let them know you were seen in the Emergency Department for the above problem. We will electronically transmit a record of today's note if your PCP or specialist is in our system. *If you do not have a primary care provider please contact [phone] to establish care with one of the [facility] primary care providers. *Return to the Emergency Department for worsening symptoms, inability to keep liquids down, fever greater than 101F, chills, or other concerning symptom. Prescriptions: New cefuroxime axetil 500 mg tablet 500 mg PO BID 8 Days Qty: 16 0RF No Action simvastatin 40 mg tablet 40 mg PO BEDTIME PreserVision AREDS [id number] capsule 1 cap PO BID allopurinol 300 mg tablet 300 mg PO DAILY aspirin 81 mg tablet,delayed release (DR/EC) 81 mg PO DAILY levothyroxine 100 mcg capsule 100 mcg PO DAILY Referrals: Shaggy Khan MD [Physician] - Virginia Duarte PA-C [Primary Care Provider] - Stand Alone Forms: Patient Portal/API <Shaggy Underwood MD - Last Filed: 10/24/22 12:52> Cosign ED Attending Cosignature Attestation: I was immediately available in the department for consultation. ?This documentation has been reviewed and I agree with assessment and plan. Supervised by Shaggy Underwood MD
== END 2022-10-19 16:27 | disposition home or self-care (01) ==
PROVIDERS: Emergency Medicine; Emergency Provider Nurse Practitioner Critical Care Medicine; PCP Physician Assistant
DX: N39.0 Urinary tract infection, site not specified (principal); R31.0 Gross hematuria
CPT/HCPCS: 51798; 81003; 81015; 87086; 99282; 99283

== ENCOUNTER → 2022-10-31 13:57 | Outpatient (CLI) | payer OTHER, SELFPAY ==
--- NOTE | 2022-10-31 | DI.CT.S_ITS ---
PROCEDURE: CT IVP A/P W/WO INDICATIONS: HEMATURIA TECHNIQUE: Optional 5 mm thick noncontrast images acquired from the diaphragm to the symphysis pubis. After the administration of intravenous contrast, 5 mm thick images acquired from the diaphragm to the symphysis pubis after a 10-minute delay. 2 mm thick coronal and sagittal reformats were then performed of the kidneys and ureters. For radiation dose reduction, the following was used: automated exposure control, adjustment of mA and/or kV according to patient size. COMPARISON: None. FINDINGS: Image quality: Excellent. Lung bases: Lung bases are clear. Heart size is normal. Urinary system: Right kidney is absent. Abnormal retention of the left kidney. Left-sided renal sinus cysts. No hydronephrosis or stones. No filling defects within the opacified renal collecting system. Left ureter is incompletely distended with contrast. Bladder wall diverticulum. Bladder is incompletely distended with contrast. Other solid organs: Liver is normal in size and enhancement. Gallbladder is unremarkable . Biliary system is non dilated. Pancreas enhances normally. Spleen is normal in size and enhancement. 1.5 cm right adrenal nodule with low attenuation, consistent with a benign adrenal adenoma (0 Hounsfield unit). Peritoneum and bowel: Bowel loops demonstrate normal wall thickness and caliber. No free fluid or air. Colonic diverticulosis without evidence of diverticulitis. Fecal debris within the small bowel. Nodes and vessels: No retroperitoneal or mesenteric adenopathy by size criteria. Aorta and inferior vena cava are normal in size. Abdominal wall: Small ventral hernia containing fat. Pelvis: No pathologic free pelvic fluid. No inguinal hernias or adenopathy. Prostatomegaly. Coarse prostate calcifications. Bones: No suspicious bony lesions. No vertebral body compression fractures. IMPRESSION: Prior right nephrectomy. Left pelvic kidney with abnormal rotation. No hydronephrosis or filling defect within the opacified renal collecting system. No nephrolithiasis. Prostatomegaly with trabeculated bladder wall, most consistent with chronic outlet obstruction. Bladder is incompletely distended with contrast. Benign right adrenal adenoma. Dictated by: Ankit Maguire M.D. on 10/31/2022 at 16:48 Approved by: Ankit Maguire M.D. on 10/31/2022 at 16:55
[2022-10-31 14:41] LABS: Estimated Glomerular Filt Rate > 60 mL/min (>60)
== END ==
PROVIDERS: PCP Physician Assistant; Referring Provider Student in an Organized Health Care Education/Training Program; Visit Provider Student in an Organized Health Care Education/Training Program
DX: N32.89 Other specified disorders of bladder (principal); R31.0 Gross hematuria; D35.01 Benign neoplasm of right adrenal gland; N40.0 Benign prostatic hyperplasia without lower urinary tract symptoms; N28.1 Cyst of kidney, acquired; N32.3 Diverticulum of bladder; E27.9 Disorder of adrenal gland, unspecified; K43.9 Ventral hernia without obstruction or gangrene; Z90.5 Acquired absence of kidney
CPT/HCPCS: 36415; 74178; 82565; Q9967

== ENCOUNTER → 2024-02-14 12:28 | Outpatient (CLI) | payer MEDICARE, SELFPAY ==
--- NOTE | 2024-02-14 12:29 | DI.ECHO.S_ITS ---
[facility] : : [id number] [address] : : [id number] : : Phone: [phone] Echocardiogram Report + + :Name: KAMALJIT VITAL Study Date: 02/14/2024 Height: 74 in : :[facility] ReadingLocation: Weight: 225 lb : : Gender: Male BSA: 2.3 m2 : :: 1940 Age: 83 yrs BP: 134/73 mmHg: :Reason For Study: HEART MURMUR : :Ordering Physician: EDWARD, : :ALLY Performed By: Amaris Comobs : :Referring: ALLY GARG : + + Interpretation Summary 1) Normal left ventricular size, wall motion, and systolic function (EF 60- 65%). 2) Normal right ventricular size and function. 3) There is mild aortic stenosis (valve area 1.6cm2, mean gradient 16mmHg, severity ratio 0.44). 4) There is mild to moderate aortic regurgitation. 5) No prior Echo available for comparison. Procedure: A two-dimensional transthoracic echocardiogram with color flow and Doppler was performed. The study quality was technically adequate. There is no prior echocardiogram noted for this patient. The patient was in sinus rhythm with heart rates between 52-57 bpm during the exam. Left Ventricle: The left ventricle is normal in size. Left ventricular wall thickness is borderline increased. The ejection fraction is estimated to be 60-65%. Left ventricular systolic function appears normal without focal wall motion abnormalities. Diastolic parameters suggest a relaxation abnormality of the left ventricle, consistent with probable normal filling pressures. Right Ventricle: The right ventricle is normal in size and function. Atria: The left atrial size is normal. Right atrial size is normal. There is no Doppler evidence for an interatrial shunt. Mitral Valve: The mitral valve is normal in structure and function. There is no mitral regurgitation noted. Aortic Valve: The aortic valve is moderately calcified. The aortic valve is trileaflet. There is mild aortic stenosis. The peak aortic velocity is 2.6 m/sec. The aortic valve mean gradient is 16 mmHg. The calculated aortic valve area is 1.6 cm2. There is mild to moderate aortic regurgitation. Tricuspid Valve: The tricuspid valve is normal in structure and function. There is mild tricuspid regurgitation. The right ventricular systolic pressure is estimated to be at least 23 mmHg based on an estimated right atrial pressure of 3 mm Hg. Pulmonic Valve: The pulmonic valve leaflets are thin and pliable; valve motion is normal. There is no pulmonic valvular regurgitation. Great Vessels: The aortic root is borderline dilated. The ascending aorta is at the upper limits of normal in size. The IVC is of normal diameter and collapses greater than 50% with a sniff. This suggests a low right atrial pressure of 3 mm Hg. Pericardium/ Pleura There is no pericardial effusion. There is no pleural effusion. MMode/2D Measurements & Calculations LVIDd: 5.4 cm LVOT diam: 2.2 cm LVIDs: 3.4 cm Ao root diam: 4.1 cm FS: 37.5 % asc Aorta Diam: 4.1 cm IVSd: 1.0 cm Ao Arch Diam (Prox Trans): 2.4 cm LVPWd: 1.1 cm LV vidales. diameter/BSA (cm/m^2): 2.4 LV sys. diameter/BSA (cm/m^2): 1.5 LA A2 area: 22.6 cm2 RA long axis: 5.2 cm LA A4 area: 17.0 cm2 RA area: 16.7 cm2 LA length (vol): 5.7 cm RA vol: 45.8 ml LA vol: 57.1 ml RA : 20.1 ml/m2 LA vol index: 25.0 ml/m2 IVC diam: 1.6 cm RVD1 (basal): 2.7 cm TAPSE: 1.7 cm Doppler Measurements & Calculations Ao V2 max: 261.2 cm/sec LVOT Max Ross: 107.6 cm/sec Ao V2 mean: 185.5 cm/sec LV V1 max P.6 mmHg Ao max P.4 mmHg LV V1 VTI: 24.7 cm Ao mean P.8 mmHg MANUEL(I,D): 1.7 cm2 Ao V2 VTI: 56.1 cm MANUEL(V,D): 1.6 cm2 sev ratio: 0.44 MANUEL indexed to BSA (cm^2/m^2): 0.73 AI P1/2t: 807.0 msec AI dec slope: 159.3 cm/sec2 MV E max ross: 41.6 cm/sec TR max ross: 221.1 cm/sec MV A max ross: 66.3 cm/sec TR max P.6 mmHg MV E/A: 0.63 PA V2 max: 84.7 cm/sec Med Peak E' Ross: 6.0 cm/sec PA V2 mean: 67.2 cm/sec E/E' med: 6.9 PA mean P.9 mmHg Lat Peak E' Ross: 7.3 cm/sec PA pr(Accel): 22.5 mmHg E/E' lat: 5.7 E/e' average: 6.3 MV dec time: 0.39 sec SV(LVOT): 93.5 ml Reading Physician:04:55 PM
== END ==
LOC: ECHO 12:29
PROVIDERS: PCP Physician Assistant; Referring Provider Internal Medicine Cardiovascular Disease; Visit Provider Internal Medicine Cardiovascular Disease
DX: I08.2 Rheumatic disorders of both aortic and tricuspid valves (principal); R01.1 Cardiac murmur, unspecified
CPT/HCPCS: 93306